=== PATIENT | female | born 1990 | race Caucasian/White ===

== ENCOUNTER 2018-11-05 08:38 | Emergency (ER) | payer OTHER ==
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
== END 2018-11-05 09:58 | disposition home or self-care (01) ==
LOC: MW.ED 08:38
DX: M25.512 Pain in left shoulder (principal); M54.2 Cervicalgia; Z88.0 Allergy status to penicillin; Z88.1 Allergy status to other antibiotic agents
CPT/HCPCS: 73030-26-LT; 73030-LT; 99282; 99283-25